=== PATIENT | male | born 1940 | race Caucasian/White ===

== ENCOUNTER 2017-01-17 11:44 | Day surgery (SDC) | payer MEDICARE, OTHER ==
[~2017-01-17] VITALS: Ht 182.9 cm; Wt 97.5 kg
[~2017-01-17 11:44] MED LIST: 0.9% Sodium Chloride 1,000 ML IV SCH; ASPI-973 PO; EZET1TAB6 PO; LISI40TA PO; METR45CR TOP; MULT-1073 PO; Sodium Chloride LOK Flush 10 mL Syringe IV PRN; fentaNYL-PF 50 mCg/mL 2 mL Inj IVPUSH PRN
[2017-01-17 12:03] VITALS: BP 166/98; PULSE 60; RESP 16; O2SAT 96
--- NOTE | 2017-01-17 13:39 | PCM.ENDCOL ---
Colonoscopy Date of Service: Jan 17, 2017 Physician Ovidio Pruitt MD Pre Procedure Diagnosis: Screening Post Procedure Dx & Findings: Polyp hemorrhoids diverticuli Procedure Colonoscopy PROCEDURE IN DETAIL: Prep adequate Withdrawal time 14 minutes After unremarkable rectal examination the Olympus video colonoscope was inserted patient's anal canal and was advanced to cecum. Landmarks were identified including the ileocecal valve and appendiceal orifice. Scope was withdrawn systematically. Visualized colonic mucosa showed healthy shiny mucosa with normal healthy-appearing vasculature. In the cecum, there was a 2 mm polyp which was removed completely using cold snare. In the sigmoid colon there was a 3-4 mm polyp which is removed completely using cold snare. In the sigmoid colon, there were few small diverticuli. In the rectum retroflexion was done which showed hemorrhoids. Anal canal was inspected carefully on the way out and hemorrhoids noted. Impression Polyp 2 status post complete removal Diverticuli Hemorrhoids Recommendation Repeat colonoscopy in 5 years Diverticular diet Presedation Assessment Risks and Benefits Informed consent was obtained from the patient after all risks and benefits including but not limited to drug reaction, infection, pain, bleeding, perforation, as well as alternatives were discussed. Patient monitoring Continuous pulse oximetry, cardiac monitoring, blood pressure monitoring, IV access, and oxygen at 2L per nasal cannula. Periprocedural Fentanyl: Fentanyl 100mcg Incrementally Midazolam: Midazolam 5mg Incrementally Complications There were no periprocedural complications identified. Post Procedure Plan Post Procedure Recommendations 1. Restrict activities today. 2. Resume normal activities in the morning. 3. Resume medications. 4. Patient informed of normal post procedure side effects as bloating, drowsiness, blood streaking in the stool. 5. average risk CRCS. If colon polyps come back as: -Hyperplastic- can repeat colonoscopy in 10 years -Tubular adenoma- repeat colonoscopy in 5 years -Tubulovillous/villous adenoma- repeat colonoscopy in 3 years -If any dysplasia- return to clinic as soon as possible 6. Please don't hesitate to call me with any questions. Oviido Pruitt MD Jan 17, 2017 13:39
[2017-01-17 13:41] VITALS: BP 132/88; PULSE 74; O2SAT 96
[2017-01-17 13:51] VITALS: BP 121/65; PULSE 71; O2SAT 96
[2017-01-17 13:59] VITALS: BP 121/65; PULSE 76; O2SAT 94
--- NOTE | 2017-01-20 09:34 | PATH ---
SURGICAL PATHOLOGY Attending Physician:Ovidio Pruitt M.D. CASE STATUS: Signed Out PATIENT NAME: JODY DILLON PID: [id number] : 1940 DATE COLLECTED:01/17/2017 00:00 SPECIMEN: 1: Colon, Polyp 2: Colon, Polyp CLINICAL HISTORY: 1. CECAL POLYP X1 2. SIGMOID POLYP FINAL DIAGNOSIS: 1.CECAL POLYP, BIOPSY: PORTIONS OF TUBULAR ADENOMA X2; NEGATIVE FOR HIGH-GRADE DYSPLASIA. 2.SIGMOID POLYP, BIOPSY: TUBULAR ADENOMA; NEGATIVE FOR HIGH-GRADE DYSPLASIA. ICD10 K63.5 GROSS DESCRIPTION: Received two formalin-filled containers, both labeled with the patient's name. 1. In a container labeled "cecal polyp", specimen consists of two portions of tissue which aggregate to 0.3 x 0.3 x 0.2 cm. The specimen is entirely submitted in cassette 1A. 2. In a container sublabeled "sigmoid polyp", specimen consists of a 0.3 x 0.3 x 0.3 cm portion of tissue which is entirely submitted in cassette 2A. ([facility] [place]:[id number]) MICRO DESCRIPTION: See diagnosis. ICD-9 CODES: CPT CODES: 1: 50277 2: 60583 Electronically Signed Out Sarika Batres MD [facility] Pathology [facility] [address], [place] [address] Technical component performed at [facility], [facility] [address], [place], [address]
== END 2017-01-17 23:59 | disposition home or self-care (01) ==
LOC: END 11:44
PROVIDERS: ATTEND Internal Medicine
DX: Z12.11 Encounter for screening for malignant neoplasm of colon (principal); D12.0 Benign neoplasm of cecum; D12.5 Benign neoplasm of sigmoid colon; K57.30 Diverticulosis of large intestine without perforation or abscess without bleeding; K64.9 Unspecified hemorrhoids; I10 Essential (primary) hypertension; E78.5 Hyperlipidemia, unspecified; E78.00 Pure hypercholesterolemia, unspecified; Z79.82 Long term (current) use of aspirin
CPT/HCPCS: 45385; 88305; 99153; G0500; J2250; J3010; J7030